=== PATIENT | female | born 1945 | race Caucasian/White ===

== ENCOUNTER 2018-01-01 08:00 | Inpatient (IN) | payer OTHER ==
[~2018-01-01] VITALS: Ht 152.4 cm; Wt 69.4 kg
[2018-01-01] MEDS ORDERED: NORVASC5 MG PO (09:13)
[2018-01-01] MEDS ORDERED: METOPROLOL SUCC50 MG PO (09:13)
[2018-01-01] MEDS ORDERED: COZAAR50 MG PO (09:13)
[2018-01-01] MEDS ORDERED: SYNTHROID50 MCG PO (09:14)
[2018-01-01] MEDS ORDERED: PROTONIX40 MG PO (09:14)
[2018-01-01] MEDS ORDERED: ZOCOR20 MG PO (09:14)
[2018-01-01] MEDS ORDERED: NEURONTIN800 MG PO (09:15)
== END 2018-01-11 15:08 | DRG 470 ==
LOC: SURH 01-08 07:00 → SURG 01-08 07:39 → O/R 01-08 07:39 → SURH 01-08 08:00 → SURG 01-08 14:35
PROVIDERS: Orthopaedic Surgery
PROC: 0SRC0J9 Replacement of Right Knee Joint with Synthetic Substitute, Cemented, Open Approach (ICD-10-PCS; principal; 2018-01-08 07:00)
DX: M17.11 Unilateral primary osteoarthritis, right knee (principal); D62 Acute posthemorrhagic anemia; I10 Essential (primary) hypertension; E03.8 Other specified hypothyroidism; K29.00 Acute gastritis without bleeding; K21.9 Gastro-esophageal reflux disease without esophagitis

== ENCOUNTER 2018-01-16 14:05 | Inpatient (IN) | payer OTHER ==
[~2018-01-16] VITALS: Ht 152.4 cm; Wt 68.5 kg
[~2018-01-16 14:05] MED LIST: COZAAR50 MG PO; METOPROLOL SUCC50 MG PO; NEURONTIN800 MG PO; NORVASC5 MG PO; PROTONIX40 MG PO; SYNTHROID50 MCG PO; ZOCOR20 MG PO
[2018-01-16] MEDS ORDERED: XARELTO10 MG (14:49)
[2018-01-29] MEDS ORDERED: OXYC1TAB9 PO (09:16)
[2018-01-29] MEDS ORDERED: NORFLEX100MG PO (09:16)
[2018-01-29] MEDS ORDERED: NeurRONTin 100mg cap PO (09:16)
== END 2018-01-30 12:05 | disposition home or self-care (01) | DRG 603 ==
LOC: ER 14:05 → SEC-K 17:15 → SURG 17:15
PROC: 02HV33Z Insertion of Infusion Device into Superior Vena Cava, Percutaneous Approach (ICD-10-PCS; principal; 2018-01-21)
DX: L03.115 Cellulitis of right lower limb (principal); L76.32 Postprocedural hematoma of skin and subcutaneous tissue following other procedure; L76.82 Other postprocedural complications of skin and subcutaneous tissue; Y83.8 Other surgical procedures as the cause of abnormal reaction of the patient, or of later complication, without mention of misadventure at the time of the procedure; Y92.89 Other specified places as the place of occurrence of the external cause; I10 Essential (primary) hypertension; E03.8 Other specified hypothyroidism; E78.4 Other hyperlipidemia; Z96.651 Presence of right artificial knee joint; L89.322 Pressure ulcer of left buttock, stage 2